=== PATIENT | male | born 1990 | race Native Hawaiian/Other Pacific Islander ===

== ENCOUNTER 2022-01-08 09:45 | Outpatient (CLI) | payer OTHER ==
[2022-01-08 10:27] VITALS: BP 128/80
--- NOTE | 2022-01-08 10:27 | SLEEP CARE CONSULTATION ---
Information from patient questionnaire entered by Regulo Johnson. I have reviewed and concur with the information entered by Regulo Johnson. This document represents the service I personally performed and the decisions made by me, Cat Silva ARNP. History of Present Illness Service Date and Time: 01/08/2022 0945 Reason for Visit: New patient Chief Complaint: reports: Unrefreshed sleep, Snoring, Observed pauses in breathing, Frequent awakenings at night, Other (Sleep) Date of Onset: 1-1.5 years Usual bedtime: 10 pm Time it takes to fall asleep: about an hour Snores at night: Yes Observed to quit breathing while asleep: Yes Sleeps alone due to snoring: Yes Number of times waking at night: 10-20 somtimes an hour during sleep Reasons for waking at night: reports: Snoring, Gasping for air, Other (noise ) Toss, Turn, or Twitch while sleeping: Yes Recalls having dreams: Yes Usually gets out of bed at: 05-0600 Feels refreshed in the morning: No Morning headache: Yes (4-5 times a wk; resolves after using nasal decongestant) Sleepy or fatigued during the day: Yes Ever fallen asleep while driving: No Takes day naps: Yes (naps at work 1-2 times a wk; sometimes on weekends) Dreams during day naps: No Prior sleep studies: No Additional HPI information: I had the pleasure of seeing [employer] today regarding the possibility of him having a sleep disorder. His current complaints are snoring and observed pauses in breathing. He is here because he is having trouble sleeping. He does not feel like he is refreshed in the mornings. He wakes up several times during the night. He will nap at work when able to about 1-2 times a week. - Parasomnia Symptoms Ever been unable to move upon waking from sleep: Yes (sometimes) Walks in sleep: Yes (when [place] was [place]; not seen by recently) Talks in sleep: Yes Ever acted out dreams in sleep: Yes (maybe) Ever felt weak in the knees when startled or emotional: Yes (has not fallen to ground; not felt often) Bothered by creepy, crawly, restless sensations in legs: Yes (at least 5 times a week; no certain time a day) Problems with memory or concentration: Yes (hard time concentrating) Subjective Initial [place] Sleepiness Scale score: 4 (01/08/2022) Past Medical History Past Medical History: reports: Mood disorder (PTSD), Other (may be prediabetic) Social History The patient's occupation is a AM. Patient is and lives in . Have you smoked in the past 12 months: No Alcohol use: Yes Alcohol amount and frequency: twice a month Caffeine use: No Family History Family history of sleep disordered breathing: Yes Family Hx Sleep Apnea: Mother: Snoring, Sibling: Snoring Allergies and Home Medications Known drug allergies: No Drug allergies reviewed: Yes (NKDA) Home medication list reviewed: Yes (no daily medications) Review of Systems Weight gain over past 5 years: 20 Cardiovascular: denies: high blood pressure Respiratory: reports: shortness of breath, wheeze Neurological: reports: headaches. denies: head trauma Psychiatric: reports: mood disorder (PTSD) Ear/Nose/Throat: reports: dry mouth/throat, wisdom teeth removed. denies: tonsillectomy Endocrine: reports: sluggishness Immunologic: reports: allergies to food or environment (shrimp (gets itchy)) Physical Exam Vital signs obtained and entered by: REGULO Orosco MA Blood Pressure: 128/80 (LEFT ARM) Cuff size: regular Heart Rate: 76 O2 Saturation: 97 Height: 5 ft 2.75 in Weight: 187 lb 9.6 oz Body Mass Index: 33.5 BMI Classification: Obese Neck circumference: 17.5 (inches) Mouth and throat: narrow oropharynx Soft palate: long Hard palate: normal Uvula: normal Uvula visualization: 25% Mallampati Class III Tongue: enlarged in size with teeth fam on lateral edges Tonsils: small Neck: normal w/o lymphadenopathy or thyromegaly Heart: regular rate and rhythm Lungs: clear bilaterally Impression and Plan 1. Suspected Obstructive Sleep Apnea-Hypopnea Syndrome, as suggested by a history of loud and irregular snoring, observed cessation of breath while asleep, gasping or choking in sleep, morning headache, frequent awakening during the night, unrefreshed sleep, cognitive impairment, and excessive daytime sleepiness. Narrow oropharynx and obesity are common predisposing factors for obstructive sleep apnea-hypopnea syndrome. I recommend proceeding to polysomnography to confirm the diagnosis and to assess severity. If the patient has significant sleep disordered breathing, a manual CPAP titration study will also be performed to find the optimal treatment pressure. I informed the patient of what the sleep studies involve and after some discussion, obtained agreement to proceed. The pathophysiology of obstructive sleep apnea-hypopnea syndrome was discussed with the patient and health risks of cardiovascular and cerebrovascular disease if not treated. Risks of drowsy driving discussed in detail and patient advised to avoid long distance driving and to box puller at the first sign of drowsiness. Patient agreed to plan. * Schedule polysomnography * Avoid long distance driving or driving when feeling sleepy. * Avoid alcohol, sedative and muscle relaxant around bedtime. * Attempt to lose weight. * Review instructions provided by trained office staff on how to prepare for the sleep study. * Return for follow-up after sleep study completed. Counseling Topics: Weight loss health impact Visit Type: In Office Time Spent with Patient (minutes): 32 Provider Statement: I spent 100% of the Face to Face Visit with the patient with greater than 50% spent counseling the patient and coordination of care.
== END 2022-01-08 09:46 | disposition home or self-care (01) ==
LOC: SC 09:45
PROVIDERS: ATTEND Nurse Practitioner Family
DX: R06.83 Snoring (principal); G47.8 Other sleep disorders; R06.81 Apnea, not elsewhere classified; R51.9 Headache, unspecified; G47.10 Hypersomnia, unspecified; E66.9 Obesity, unspecified; Z68.33 Body mass index [BMI] 33.0-33.9, adult
CPT/HCPCS: 99203; 99212

== ENCOUNTER 2022-02-20 09:14 | Outpatient (CLI) | payer OTHER | END 2022-02-20 09:15 | disposition home or self-care (01) | LOC: SC 09:14 | PROVIDERS: ATTEND Nurse Practitioner Family | DX: R06.83 Snoring (principal); G47.8 Other sleep disorders; R06.81 Apnea, not elsewhere classified; R51.9 Headache, unspecified; G47.10 Hypersomnia, unspecified | CPT/HCPCS: 95806 ==